=== PATIENT | female | born 1970 | race Caucasian/White ===

== ENCOUNTER → 2016-09-08 | Outpatient (CLI) | payer OTHER ==
--- NOTE | 2016-09-08 16:08 | CT ---
EXAMINATION TYPE: CT cervical spine wo con DATE OF EXAM: 09/08/2016 4:00 PM COMPARISON: NONE HISTORY: Left sided arm pain and numbness CT DLP: 432 mGycm Automated exposure control for dose reduction was used. TECHNIQUE: CT scan of the cervical spine is obtained without contrast, axial images are obtained, sa gittal and coronal reformatted images are also reviewed. FINDINGS: Cervical spine is visualized in its entirety from C1 through upper thoracic levels, demonst rates satisfactory alignment without evidence of acute fracture or dislocation. Prevertebral soft ti ssue appears within normal limits. The C1-C2 articulation is within normal limits on the coronal bessy ges. Heterogeneous attenuation of the thyroid gland can be seen with thyroiditis. Correlate clinical ly. Vertebral body height and disc interspace maintained at all levels. At C2-C3 no disc herniation or canal stenosis. Neural foramina patent. At C3-C4 there is mild uncovertebral joint hypertrophy on the left with mild left-sided foraminal enc roachment. No significant facet arthropathy. At C4-C5 no disc herniation or canal stenosis. Neural foramina patent. At C5-C6 there is no disc herniation or canal stenosis. No foraminal encroachment. At C6-C7 left paracentral disc protrusion with mild effacement of thecal sac. Neural foramina are pat ent.. At C7-T1 no disc herniation or canal stenosis. Neural foramina are patent. IMPRESSION: 1. Small left paracentral disc herniation C6-C7 with mild effacement of thecal sac. No foraminal enc roachment. 2. Mild uncovertebral joint hypertrophy C3-C4 on the left with mild left foraminal encroachment. 2. No evidence of disc herniation or canal stenosis.
== END | disposition home or self-care (01) ==
LOC: RADCTMAIN 15:43
PROVIDERS: ATTEND Orthopaedic Surgery
DX: M50.123 Cervical disc disorder at C6-C7 level with radiculopathy (principal)
CPT/HCPCS: 72125

== ENCOUNTER → 2018-12-07 | Outpatient (CLI) | payer OTHER ==
--- NOTE | 2018-12-09 11:54 | MM ---
Reason for exam: screening (asymptomatic). Last mammogram was performed 4 years and 11 months ago. History: Took hormonal contraceptives for 1 month. Physical Findings: A clinical breast exam by your physician is recommended on an annual basis and results should be correlated with mammographic findings. MG Screening Mammo w CAD Bilateral CC and MLO view(s) were taken. Prior study comparison: January 12, 2014, mammogram, performed at [facility]. The breast tissue is extremely dense which could obscure a lesion on mammography. No significant changes when compared with prior studies. ASSESSMENT: Benign, BI-RAD 2 RECOMMENDATION: Routine screening mammogram of both breasts in 1 year.
== END ==
LOC: RADMAMWWP 16:39
PROVIDERS: ATTEND Obstetrics & Gynecology
DX: Z12.31 Encounter for screening mammogram for malignant neoplasm of breast (principal)
CPT/HCPCS: 77067

== ENCOUNTER → 2019-07-24 | Outpatient (CLI) | payer OTHER ==
[2019-07-24 17:09] LABS: Basophils % (A) 1 %; Eosinophils # (A) 0.1 k/uL (0-0.7); Eosinophils % (A) 1 %; HCT 31.2 % (34.0-46.0); HGB 9.1 gm/dL (11.4-16.0); Hypochromasia Marked; Lymphocytes % (A) 36 %; MCH 22.8 pg (25.0-35.0); MCHC 29.3 g/dL (31.0-37.0); Mean Platelet Volume 10.1; Monocytes # (A) 0.2 k/uL (0-1.0); Monocytes % (A) 4 %; Neutrophils # (A) 3.1 k/uL (1.3-7.7); Neutrophils % (A) 56 %; Platelet Count 246 k/uL (150-450); RDW 14.8 % (11.5-15.5); WBC 5.6 k/uL (3.8-10.6)
== END | disposition home or self-care (01) ==
LOC: LABWHC1 16:16
PROVIDERS: ATTEND Obstetrics & Gynecology
DX: Z01.812 Encounter for preprocedural laboratory examination (principal); N92.1 Excessive and frequent menstruation with irregular cycle
CPT/HCPCS: 36415; 85025

== ENCOUNTER 2019-08-15 07:09 | Day surgery (SDC) | payer OTHER ==
[2019-08-04 16:15] VITALS: BMI 27.4
[~2019-08-15 07:09] MED LIST: DEXAMETHASONE SOD PHOSPHATE 10 MG/ML 1 ML VIAL IV ONE; HYDROmorphone 0.5 MG/0.5 ML SYRINGE IVP PRN; LIDOCAINE 1% 20 ML VIAL (10MG/ML) FOR IV START INTRADERMA PRN; MIDAZOLAM 2 MG/2 ML VIAL IV PRN; ONDANSETRON 4 MG/2 ML VIAL IVP ONE; Pre Op ABX Message 1 EACH MISC MISCELLANE ONE; SCOPOLAMINE 1.5MG/72HR PATCH TRANSDERM ONE
[2019-08-15] MEDS: LACTATED RINGERS 1,000 ML IV SCH ×3 (07:46→09:53)
[2019-08-15] MEDS ORDERED: MIDAZOLAM 2 MG/2 ML VIAL ONE (08:24)
[2019-08-15] MEDS ORDERED: KETOROLAC 30 MG/ML 1 ML VIAL ONE (08:24)
[2019-08-15] MEDS ORDERED: fentaNYL (PF) 50 MCG/ML 2 ML AMP ONE (08:24)
[2019-08-15] MEDS ORDERED: PROPOFOL 10 MG/ML 20 ML VIAL IV ONE (08:24)
[2019-08-15] MEDS ORDERED: SIMETHICONE 80 MG CHEWABLE PO PRN (08:30)
[2019-08-15] MEDS ORDERED: METOCLOPRAMIDE 5 MG/ML 2 ML VIAL IVP PRN (08:30)
[2019-08-15] MEDS ORDERED: KETOROLAC 30 MG/ML 1 ML VIAL IVP PRN (08:30)
[2019-08-15] MEDS ORDERED: ONDANSETRON 4 MG/2 ML VIAL IVP PRN (08:30)
[2019-08-15] MEDS ORDERED: Acetaminophen-Codeine 300-30mg TAB PO PRN ×2 (08:30)
[2019-08-15] MEDS ORDERED: IBUPROFEN 600 MG TAB PO PRN (08:30)
[2019-08-15] MEDS ORDERED: diphenhydrAMINE 50 MG/ML 1 ML VIAL IVP PRN (08:30)
[2019-08-15] MEDS ORDERED: LACTATED RINGERS 1,000 ML IV SCH (08:30)
--- NOTE | 2019-08-15 08:58 | P.OP ---
Date of Procedure: 08/15/19 Preoperative Diagnosis: #1. Menometrorrhagia Postoperative Diagnosis: Same Procedure(s) Performed: #1. Diagnostic hysteroscopy #2. Dilation and curettage #3. NovaSure endometrial ablation Anesthesia: other (Gen. by facemask) Surgeon: Miah To Estimated Blood Loss (ml): 5 IV fluids (ml): 500 Urine output (ml): 40 Pathology: other (Endometrial curettings) Condition: stable Disposition: PACU Operative Findings: Preoperative pelvic examination inserted a 6 week anteverted mobile normal shaped uterus. No strings were palpable. Intraoperatively, there were no strings apparent within the cervix nor any IUD noted within the uterine cavity. Uterus was intact with no apparent evidence of perforation and there was no pathology though there was a some shaggy endometrium present. The bilateral tubal ostia were seen. The settings for the NovaSure tool where a length of 5.5 cm, width of 4.5 cm for a total power of 136 W. After a total run time of 57 seconds, the base unit read "procedure complete." The postprocedural result appeared excellent. The patient is a potential candidate for vaginal hysterectomy should become necessary in the future. Description of Procedure: The patient was prepped and draped in usual fashion after general anesthesia was administered by the anesthesiologist. A weighted speculum was placed in the bladder draining approximately 40 mL of clear leonel urine. The anterior lip of the cervix was grasped with a single-tooth tenaculum and uterus sounded to 9.5 cm with a cervical length approximate 4 cm. There was no evidence of IUD strings present within the cervical canal. The cervix was dilated to admit the diagnostic hysteroscope which was placed the fundus and the diagnostic hysteroscopy carried out the findings as noted above. There was no pathology present aside from a little bit of shaggy endometrium in the fundus. The bilateral tubal ostia were seen. There was no evidence of any perforations or other pathology and the IUD was certainly not within the cavity. The scope was removed and set aside and sharp curettage carried out onto a Telfa placed in the vagina was then sent to the Department of pathology for diagnoses. The NovaSure tool was placed within the endometrial cavity and seated well with the settings as noted above, a length of 5.5 cm, a width of 4.5 cm, for a total power of 136 W. The cavity check was attempted and passed without difficulty. The tool was enabled and the run was started. After a run time of 57 seconds, the base unit read "procedure complete." The tool was closed, removed, and discarded. The di agnostic scope was placed into the endometrial cavity again and the findings are as noted above and appeared excellent. There was adequate descensus of the uterine cervix to affect possible vaginal instructed he should become necessary in the future. All instrumentation was removed. A small point of bleeding at one of the tenaculum sites was made hemostatic with pressure. Estimated blood loss for the case was 5 mL or less. There were no complications. All sponge, instrument, and needle counts were correct. The patient tolerated the procedure well proceeded to the recovery room in stable condition.
[2019-08-15 09:03] VITALS: TEMP 98.2
[2019-08-15 10:08] VITALS: BP 129/70; PULSE 52; RESP 16
--- NOTE | 2019-08-15 10:51 | XR ---
EXAMINATION TYPE: XR abdomen 1V DATE OF EXAM: 08/15/2019 COMPARISON: NONE HISTORY: Possible IUD migration TECHNIQUE: One view abdominal series FINDINGS: The osseous structures are intact. The bowel gas pattern is nonspecific. Changes of sacroiliitis on the left. Nonspecific calcifications in pelvis. Hypertrophic change of the acetabulum can be associat ed with femoral acetabular impingement. No intrauterine device identified. Curvature of the spine wit h hypertrophic changes. IMPRESSION: 1. Nonspecific abdomen. No IUD is identified. Correlate clinically.
== END 2019-08-15 11:09 | disposition home or self-care (01) ==
LOC: OR 07:09
PROVIDERS: ATTEND Obstetrics & Gynecology
DX: N92.1 Excessive and frequent menstruation with irregular cycle (principal); Z97.5 Presence of (intrauterine) contraceptive device; Z79.3 Long term (current) use of hormonal contraceptives; Z90.89 Acquired absence of other organs; Z82.49 Family history of ischemic heart disease and other diseases of the circulatory system; Z83.3 Family history of diabetes mellitus
CPT/HCPCS: 81025; 88305; 74018; 58563; J2250; J1100; J2405; J3010; J1885; J2704